=== PATIENT | female | born 1985 | race Caucasian/White ===

== ENCOUNTER 2017-12-07 14:39 | Emergency (ER) | payer OTHER ==
[2017-12-07] MEDS ORDERED: Ondansetron 4 MG Tab.DIS PO ONE (15:54)
[2017-12-07] MEDS ORDERED: Penicillin G Benzathine 1,200,000 Units/2 ML Syringe IM ONE (15:58)
--- NOTE | 2017-12-07 16:00 | EDM.PDOC ---
ED HPI GENERAL MEDICAL PROBLEM - General Chief Complaint: General Stated Complaint: FEELING RUN DOWN, PAIN IN RT ARM, NAUSEOUS Time Seen by Provider: 12/07/17 14:44 Source of Information: Reports: Patient History Limitations: Reports: No Limitations - History of Present Illness INITIAL COMMENTS - FREE TEXT/NARRATIVE: 1) dental fracture, ?concern for infection; sick to stomach, pain for a week 2) tick bite, to back of head, right side, nausea. ?deer tick 3) right arm, 4/5th fingers are numb. Pain to the right scapular region with a palpated "knot". Onset: Gradual Duration: Day(s): Quality: Reports: Other (dental pain is throbbing, sharp; numbness and tingling to fingers of the right UE, 4th 5th fingers.) Improves with: Reports: None Worsens with: Reports: None - Related Data Allergies Allergy/AdvReac Type Severity Reaction Status Date / Time No Known Allergies Allergy Verified 12/07/17 15:39 Home Meds: Home Meds Doxycycline [Vibramycin] 100 mg PO BID #28 cap 12/07/17 [Rx] FLUoxetine HCl [Prozac] 60 mg PO DAILY 12/07/17 [History] Gabapentin [Neurontin] 900 mg PO TID 12/07/17 [History] Ibuprofen 800 mg PO TID PRN 30 Days tablet 12/07/17 [Rx] Ondansetron [Zofran ODT] 4 mg PO Q6H PRN #15 tab.dis 12/07/17 [Rx] buPROPion HCl [Wellbutrin Xl] 450 mg PO DAILY 12/07/17 [History] hydrOXYzine Pamoate [Vistaril] 1 tab PO QID PRN 12/07/17 [History] Past Medical History Respiratory History: Reports: Asthma Gastrointestinal History: Reports: Cholelithiasis, Diverticulosis 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: Neurological History: Reports: Concussion, Head Trauma Psychiatric History: Reports: Anxiety, Depression, Panic Attack, PTSD - Past Surgical History GI Surgical History: Reports: Cholecystectomy, Colonoscopy, EGD Female Surgical History: Reports: Breast Reduction, Tubal Ligation ED ROS GENERAL - Review of Systems Review Of Systems: See Below Constitutional: Reports: Malaise, Weakness, Fatigue HEENT: Reports: Dental Pain Respiratory: Reports: No Symptoms Cardiovascular: Reports: No Symptoms GI/Abdominal: Reports: No Symptoms : Reports: No Symptoms Musculoskeletal: Reports: Shoulder Pain (right shoulder with RUE numbness and tingling into fingers) Skin: Reports: Other (small skin abrasion to the right side, posterior of scalp (?tick bite)) Neurological: Reports: Weakness ED EXAM, GENERAL - Physical Exam Exam: See Below Exam Limited By: No Limitations General Appearance: Alert, WD/WN, No Apparent Distress Eye Exam: Bilateral Eye: EOMI, PERRL Throat/Mouth: Normal Inspection, Normal Oropharynx, Other (upper left, molar is fractured; poor dental caries throughout) Head: Atraumatic, Normocephalic, Other (small scab area to the right posterior scalp from presumable deer tick bite) Neck: Normal Inspection, Supple, Non-Tender, Full Range of Motion Respiratory/Chest: No Respiratory Distress, Lungs Clear, Normal Breath Sounds, Chest Non-Tender Cardiovascular: Regular Rate, Rhythm GI/Abdominal: Normal Bowel Sounds, Soft Back Exam: Full Range of Motion Extremities: Normal Inspection, Normal Range of Motion, Other (right sided parascapular tenderness with tingling in to the 4/5th fingers.) Course - Vital Signs Last Recorded V/S: Last Vital Signs Temp 96.9 F 12/07/17 15:58 Pulse 90 12/07/17 15:58 Resp 16 12/07/17 15:58 BP 125/72 12/07/17 15:58 Pulse Ox 95 12/07/17 15:58 - Orders/Labs/Meds Meds: Medications Discontinued Medications Generic Name Dose Route Start Last Admin Trade Name Freq PRN Reason Stop Dose Admin Ondansetron HCl 8 mg 12/07/17 15:54 12/07/17 16:11 Zofran Odt PO 12/07/17 15:55 8 mg ONETIME ONE Administration Penicillin G Benzathine 1.2 millunits 12/07/17 15:58 12/07/17 16:11 Bicillin L-A IM 12/07/17 15:59 1.2 millunits ONETIME ONE Administration - Re-Assessments/Exams Free Text/Narrative Re-Assessment/Exam: 12/07/17 20:38 1) dental fracture, ?concern for infection; sick to stomach, pain for a week- will treat with Bicillin 1.2 IM 2) tick bite, to back of head, right side, nausea. ?deer tick; will place on Doxycyline for 2 weeks 3) right arm, 4/5th fingers are numb. Pain to the right scapular region with a palpated "knot". Recommend Ibuprofen as directed; stretching, ice. FU with a primary care doctor. Departure - Departure Time of Disposition: 16:10 Disposition: Home, Self-Care 01 Condition: Good Clinical Impression: Dental abscess, Tick bite - Discharge Information Prescriptions: Doxycycline [Vibramycin] 100 mg PO BID #28 cap Ibuprofen 800 mg PO TID PRN 30 Days tablet PRN Reason: Pain Ondansetron [Zofran ODT] 4 mg PO Q6H PRN #15 tab.dis PRN Reason: Nausea Instructions: Tick Bite Information, Adult, [id number], Dental Abscess, Easy- to-Read Referrals: PCP,None [Primary Care Provider] - Forms: ED Department Discharge Additional Instructions: Home, push fluids rest follow up as needed; Medications as directed Go see the dentist for you broken tooth. - Problem List & Annotations (1) Dental abscess SNOMED Code(s): 958100734 Code(s): K04.7 - PERIAPICAL ABSCESS WITHOUT SINUS Status: Acute Priority : Low (2) Tick bite SNOMED Code(s): 54943744 Code(s): W57.XXXA - BIT/STUNG BY NONVENOM INSECT & OTH NONVENOM ARTHROPODS, INIT Status: Acute Priority: Low Qualifiers: Encounter type: initial encounter Qualified Code(s): W57.XXXA - Bitten or stung by nonvenomous insect and other nonvenomous arthropods, initial encounter - Problem List Review Problem List Initiated/Reviewed/Updated: Yes
== END 2017-12-07 16:25 | disposition home or self-care (01) ==
LOC: JP.ED 14:39
DX: S00.06XA Insect bite (nonvenomous) of scalp, initial encounter (principal); K08.89 Other specified disorders of teeth and supporting structures; Z79.899 Other long term (current) drug therapy; J45.909 Unspecified asthma, uncomplicated; F41.9 Anxiety disorder, unspecified; F32.9 Major depressive disorder, single episode, unspecified; K04.7 Periapical abscess without sinus; W57.XXXA Bitten or stung by nonvenomous insect and other nonvenomous arthropods, initial encounter
CPT/HCPCS: 96372; 99283; A9270; J0561

== ENCOUNTER 2017-12-11 18:17 | Emergency (ER) | payer MEDICAID, OTHER ==
--- NOTE | 2017-12-11 21:19 | EDM.PDOC ---
ED HPI GENERAL MEDICAL PROBLEM - General Chief Complaint: General Stated Complaint: LYMES-WEEK AGO,GETTING WORSE Time Seen by Provider: 12/11/17 20:49 Source of Information: Reports: Patient, Old Records, RN Notes Reviewed History Limitations: Reports: No Limitations - History of Present Illness INITIAL COMMENTS - FREE TEXT/NARRATIVE: Drove herself here Chief complaint Fatigue nausea vomiting muscle aches History of present illness 32-year-old female, seen in emergency 3 days ago with tick bites, also some achiness, and some dental pain. She was diagnosed with dental infection and with possible tickborne illness and prescribed doxycycline twice daily for 14 days. Dental pain is improved but her muscle aches especially in her right forearm and in both her calves have increased. She continues to feel more fatigue nausea and actually has had some episodes of vomiting, 5 within 1 hour yesterday. Also low-grade fever 101.2 yesterday and chills and new-onset of diarrhea several episodes of watery malodorous diarrhea diarrhea. No cold symptoms mild cough but no shortness of breath or difficulty breathing No abdominal pain No urinary symptoms. She was able eat a small amount today. Headache yesterday but none today. Recently moved from [facility] She has 5 children live a walker with her ex- that she sees weekly. History of anxiety PTSD and depression, she is on antidepressants and Vistaril for anxiety but no major tranquilizers. She does smoke. No new rashes but she does have many insect bites. She has some achiness of her wrist forearm the back of her hand. general Pain Score (Numeric/FACES): 7 - Related Data Allergies Allergy/AdvReac Type Severity Reaction Status Date / Time No Known Allergies Allergy Verified 12/11/17 19:59 Home Meds: Home Meds Doxycycline [Vibramycin] 100 mg PO BID #28 cap 12/07/17 [Rx] FLUoxetine HCl [Prozac] 60 mg PO DAILY 12/07/17 [History] Gabapentin [Neurontin] 900 mg PO TID 12/07/17 [History] Ibuprofen 800 mg PO TID PRN 30 Days tablet 12/07/17 [Rx] Ondansetron [Zofran ODT] 4 mg PO Q6H PRN #15 tab.dis 12/07/17 [Rx] buPROPion HCl [Wellbutrin Xl] 450 mg PO DAILY 12/07/17 [History] hydrOXYzine Pamoate [Vistaril] 1 tab PO QID PRN 12/07/17 [History] Past Medical History Respiratory History: Reports: Asthma Gastrointestinal History: Reports: Cholelithiasis, 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: Neurological History: Reports: Concussion, Head Trauma Psychiatric History: Reports: Anxiety, Depression, Panic Attack, PTSD - Infectious Disease History Infectious Disease History: Reports: Chicken Pox - Past Surgical History GI Surgical History: Reports: Cholecystectomy, Colonoscopy, EGD Female Surgical History: Reports: Breast Reduction, Tubal Ligation Social & Family History - Tobacco Use Smoking Status *Q: Current Every Day Smoker Years of Tobacco use: 5 Packs/Tins Daily: 0.5 Used Tobacco, but Quit: No Second Hand Smoke Exposure: Yes - Caffeine Use Caffeine Use: Reports: Energy Drinks - Alcohol Use Days Per Week of Alcohol Use: 0 - Recreational Drug Use Recreational Drug Use: Yes Recreational Drug Type: Reports: Marijuana/Hashish Recreational Drug Use Frequency: Daily ED ROS GENERAL - Review of Systems Review Of Systems: See Below Constitutional: Reports: Fever, Chills, Malaise, Fatigue, Decreased Appetite. Denies: Diaphoresis HEENT: Reports: Dental Pain (Improving). Denies: Ear Pain, Eye Pain, Rhinitis Respiratory: Reports: No Symptoms Cardiovascular: Reports: No Symptoms GI/Abdominal: Reports: Diarrhea, Decreased Appetite, Nausea, Vomiting. Denies: Abdominal Pain, Bloody Stool : Reports: No Symptoms Musculoskeletal: Reports: Joint Pain, Muscle Pain. Denies: Joint Swelling Skin: Reports: No Symptoms Neurological: Reports: Headache (Yesterday). Denies: Paresthesia, Trouble Speaking, Difficulty Walking, Gait Disturbance Psychiatric: Reports: No Symptoms Hematologic/Lymphatic: Reports: No Symptoms Immunologic: Reports: No Symptoms ED EXAM, GENERAL - Physical Exam Exam: See Below Exam Limited By: No Limitations General Appearance: Alert, Obese, Other (She looks tired but otherwise not in acute distress, vital signs show mild elevation systolic blood pressure otherwise normal, no difficulty speaking or breathing) Eye Exam: Bilateral Eye: Normal Inspection Ears: Normal External Exam, Normal Canal, Hearing Grossly Normal, Normal TMs Nose: Normal Inspection, Normal Mucosa Throat/Mouth: Normal Inspection, Normal Gums, Normal Oropharynx, Normal Voice Head: Atraumatic, Normocephalic Neck: Normal Inspection, Supple, Non-Tender, Full Range of Motion. No: Lymphadenopathy (R), Lymphadenopathy (L) Respiratory/Chest: No Respiratory Distress, Lungs Clear, Normal Breath Sounds, No Accessory Muscle Use Cardiovascular: Normal Peripheral Pulses, Regular Rate, Rhythm GI/Abdominal: Normal Bowel Sounds, Soft, Non-Tender, No Distention, No Mass Back Exam: Normal Inspection Extremities: Other (No discrete joint swelling is identified, she does have multiple mosquito bites) Neurological: Alert, Oriented, Normal Cognition, No Motor/Sensory Deficits Psychiatric: Normal Affect, Normal Mood Skin Exam: Warm, Dry, No Rash Lymphatic: No Adenopathy Course - Vital Signs Last Recorded V/S: Last Vital Signs Temp 36.0 C 12/11/17 20:05 Pulse 92 12/11/17 20:05 Resp 16 12/11/17 20:05 BP 147/98 H 12/11/17 20:05 Pulse Ox 98 12/11/17 20:05 - Orders/Labs/Meds Orders: Active Orders 24 hr Category Date Time Status BABESIA MICROTI ANTIBODY PANEL Routine Lab 12/11/17 21:15 Received E. CHAFFEENSIS-HME (MONOCYTIC) Routine Lab 12/11/17 21:15 Received LYME, TOTAL AB TEST/REFLEX Routine Lab 12/11/17 21:15 Received UA W/MICROSCOPIC [URIN] Stat Lab 12/11/17 21:22 Ordered Labs: Laboratory Tests 12/11/17 12/11/17 12/11/17 Range/Units 21:15 21:15 21:22 WBC 4.5 (4.5-11.0) K/uL RBC 4.27 (3.30-5.50) M/uL Hgb 12.5 (12.0-15.0) g/dL Hct 39.1 (36.0-48.0) % MCV 92 (80-98) fL MCH 29 (27-31) pg MCHC 32 (32-36) % Plt Count 191 (150-400) K/uL Sodium 138 L (140-148) mmol/L Potassium 3.6 (3.6-5.2) mmol/L Chloride 105 (100-108) mmol/L Carbon Dioxide 27 (21-32) mmol/L Anion Gap 9.6 (5.0-14.0) mmol/L BUN 11 (7-18) mg/dL Creatinine 0.7 (0.6-1.0) mg/dL Est Cr Clr Drug Dosing 110.12 mL/min Estimated GFR (MDRD) > 60 (>60) Glucose 103 (74-106) mg/dL Calcium 8.1 L (8.5-10.1) mg/dL Total Bilirubin 0.3 (0.2-1.0) mg/dL AST 28 (15-37) U/L ALT 46 (12-78) U/L Alkaline Phosphatase 39 L (46-116) U/L Creatine Kinase 55 (26-192) U/L Total Protein 6.0 L (6.4-8.2) g/dL Albumin 2.8 L (3.4-5.0) g/dL Globulin 3.2 (2.3-3.5) g/dL Albumin/Globulin Ratio 0.9 L (1.2-2.2) Urine Color [place] Urine Appearance Clear Urine pH 6.5 (4.5-8.0) Ur Specific [place] 1.020 (1.008-1.030) Urine Protein Negative (NEGATIVE) mg/dL Urine Glucose (UA) Normal (NEGATIVE) mg/dL Urine Ketones 15 H (NEGATIVE) mg/dL Urine Occult Blood Negative (NEGATIVE) Urine Nitrite Negative (NEGATIVE) Urine Bilirubin Small (NEGATIVE) Urine Urobilinogen 1 (NORMAL) mg/dL Ur Leukocyte Esterase Small (NEGATIVE) Urine RBC 0-5 (0-5) Urine WBC 5-10 H (0-5) Ur Epithelial Cells Many Amorphous Sediment Rare Urine Bacteria Not seen Urine Mucus Few - Re-Assessments/Exams Free Text/Narrative Re-Assessment/Exam: 12/11/17 21:17 32-year-old female who presents to emergency with symptoms worsening since her visit 3 days ago. She has muscle aches some joint aches intermittent fever fatigue headache nausea vomiting diarrhea. Differential diagnosis includes adverse reactions antibiotic, viral gastroenteritis, tickborne illness. She has had recent dental infection so it's possible so she could have more than one infection going on. Vomiting and diarrhea suggestive of viral infection rather than tickborne illness Lab tests ordered 12/11/17 22:40 Liver enzymes are not elevated CBC shows normal white count and hemoglobin Electrolytes normal Most likely suffering from gastroenteritis, plus possible tickborne illness Continue doxycycline Drink plenty of fluids Follow-up primary care 1 week Tickborne illness testing pending Departure - Departure Time of Disposition: 22:41 Disposition: Home, Self-Care 01 Condition: Good Clinical Impression: Acute infective gastroenteritis, Tick-borne fever - Discharge Information Instructions: Viral Gastroenteritis, Adult Referrals: PCP,None [Primary Care Provider] - Forms: ED Department Discharge Additional Instructions: Continue taking doxycycline Drink plenty of fluids Get rechecked if you're fever is lasting more than 72 hours It would be a good idea to make an appointment with the general care/family physician in about a week's time. Continue acetaminophen for discomfort as needed - My Orders Last 24 Hours: My Active Orders 12/11/17 21:15 BABESIA MICROTI ANTIBODY PANEL Routine E. CHAFFEENSIS-HME (MONOCYTIC) Routine LYME, TOTAL AB TEST/REFLEX Routine 12/11/17 21:22 UA W/MICROSCOPIC [URIN] Stat - Assessment/Plan Last 24 Hours: My Active Orders 12/11/17 21:15 BABESIA MICROTI ANTIBODY PANEL Routine E. CHAFFEENSIS-HME (MONOCYTIC) Routine LYME, TOTAL AB TEST/REFLEX Routine 12/11/17 21:22 UA W/MICROSCOPIC [URIN] Stat
[2017-12-14 11:17] LABS: LYME IGG/IGM AB <0.91 ISR (0.00-0.90)
[2017-12-14 17:18] LABS: BABESIA MICROTI IGG <1:10 (Neg:<1:10); BABESIA MICROTI IGM <1:10 (Neg:<1:10)
== END 2017-12-11 22:46 | disposition home or self-care (01) ==
LOC: JP.ED 18:17
DX: A09 Infectious gastroenteritis and colitis, unspecified (principal); A93.8 Other specified arthropod-borne viral fevers; F41.9 Anxiety disorder, unspecified; F32.9 Major depressive disorder, single episode, unspecified; J45.909 Unspecified asthma, uncomplicated; F17.210 Nicotine dependence, cigarettes, uncomplicated; Z79.899 Other long term (current) drug therapy
CPT/HCPCS: 36415; 80053; 81001; 82550; 85027; 86618; 86666; 86666-59; 86753; 99284

== ENCOUNTER 2021-10-02 13:29 | Emergency (ER) | payer MEDICAID ==
[2021-10-02 14:32] LABS: CORONAVIRUS COVID-19 NAA NEGATIVE (NEGATIVE)
[2021-10-02] MEDS ORDERED: Haloperidol Lactate 5 MG/ML SDV IVPUSH ONE (14:38)
[2021-10-02] MEDS ORDERED: Sodium Chloride 0.9% 10 ML Syringe FLUSH PRN (14:38)
[2021-10-02] MEDS ORDERED: Lactated Ringers 1,000 ML IV ONE (14:38)
== END 2021-10-02 17:23 | disposition home or self-care (01) ==
LOC: JP.ED 13:29
DX: R11.2 Nausea with vomiting, unspecified (principal); T40.715A Adverse effect of cannabis, initial encounter; F12.20 Cannabis dependence, uncomplicated; Z72.0 Tobacco use; Z20.822 Contact with and (suspected) exposure to COVID-19
CPT/HCPCS: 0241U; 36415; 80048; 80305; 83605; 85025; 96374; 99284; J1630; J3490; J7120; 99282

== ENCOUNTER 2021-10-04 13:16 | Emergency (ER) | payer MEDICAID ==
[2021-10-04] MEDS ORDERED: LORazepam 2 MG/ML SDV IM ONE (13:31)
[2021-10-04] MEDS ORDERED: Haloperidol Lactate 5 MG/ML SDV IM ONE (13:31)
== END 2021-10-04 14:21 | disposition home or self-care (01) ==
LOC: JP.ED 13:16
DX: F10.10 Alcohol abuse, uncomplicated (principal); F19.10 Other psychoactive substance abuse, uncomplicated; F98.9 Unspecified behavioral and emotional disorders with onset usually occurring in childhood and adolescence; Y90.7 Blood alcohol level of 200-239 mg/100 ml; F41.9 Anxiety disorder, unspecified; F32.A Depression, unspecified; Z79.899 Other long term (current) drug therapy
CPT/HCPCS: 36415; 80048; 80305-QW; 80307; 85025; 96372; 99283; 99285; J1630; J2060